=== PATIENT | male | born 1950 | race Hispanic/Latino ===

== ENCOUNTER 2018-09-27 16:05 | Inpatient (IN) | payer OTHER ==
[~2018-09-27] VITALS: Ht 175.3 cm; Wt 79.3 kg
[2018-09-27 16:29] LABS: BASOPHILS % (AUTO) 2.3 % (0.0-5.0); EOSINOPHILS % (AUTO) 0.3 % (0.0-8.0); HEMATOCRIT 30.9 % (42-54); LYMPHOCYTES % (AUTO) 23.2 % (21.0-51.0); MEAN CORPUSCULAR HGB CONC 32.4 g/dL (32.0-36.0); MEAN CORPUSCULAR VOLUME 83.4 fL (79-99); MONOCYTES % (AUTO) 2.1 % (3.0-13.0); NEUTROPHILS % (AUTO) 72.1 % (40.0-77.0); NUCLEATED RED BLOOD CELLS 1.1 % (0.0-0.19); PLATELET COUNT (AUTO) 271 K/uL (130-400); RED BLOOD CELL COUNT(AUTO) 3.71 MIL/uL (4.50-6.20); RED CELL DISTRIBUTION WIDTH 16.7 % (11.0-15.5); WHITE BLOOD COUNT (AUTO) 10.7 K/uL (4.8-10.8)
[2018-09-27] MEDS ORDERED: ZOSYN 3.375GM+NS 50ML 50 ML IV ONE (16:33)
[2018-09-27] MEDS ORDERED: SODIUM CHLORIDE 0.9% 1000ML 2,000 ML IV ONE (16:33)
[2018-09-27 16:41] LABS: INR 1.13 (0.85-1.15); PARTIAL THROMBOPLASTIN TIME 33.1 SEC (26.3-35.5); PROTHROMBIN TIME 11.8 SEC (9.6-11.6)
[2018-09-27 16:53] LABS: ALANINE AMINOTRANSFERASE 215 U/L (12-78); AMMONIA 35 umol/L (11-32); ASPARTATE AMINOTRANSFERASE 333 U/L (10-37); BILIRUBIN,TOTAL 9.7 mg/dL (0.2-1.0); CARBON DIOXIDE 19 mmol/L (21-32); CREATINE KINASE, TOTAL 73 U/L (21-232); CREATININE 1.6 mg/dL (0.5-1.5); GLOMERULAR FILTR. RATE CALC 46 mL/min (>60); GLUCOSE,RANDOM 193 mg/dL (70-105); MYOGLOBIN 123 ng/mL (10-92); POTASSIUM 4.3 mmol/L (3.5-5.1); SODIUM SERUM 121 mmol/L (136-145); TOTAL PROTEIN, SERUM 5.8 g/dL (6.0-8.3); TROPONIN I < 0.04 ng/mL (0.00-0.06); UREA NITROGEN, BLOOD 34 mg/dL (7-18)
[2018-09-27 16:56] LABS: CHLORIDE 87 mmol/L (101-111)
[2018-09-27 17:12] LABS: ALBUMIN 1.4 g/dL (3.5-5.0)
[2018-09-27 19:48] LABS: APPEARANCE,URINE Cloudy (CLEAR); BILIRUBIN,URINE Large (NEGATIVE); COLOR,URINE Dark Yellow (YELLOW); GLUCOSE, URINE (UA) TRACE mg/dL (NEGATIVE); KETONES,URINE Negative (NEGATIVE); LEUKOCYTE ESTERASE ,URINE Trace (NEGATIVE); NITRATE,URINE Positive (NEGATIVE); OCCULT BLOOD,URINE Negative (NEGATIVE); PROTEIN,URINE POS 1+ mg/dL (NEGATIVE)
[2018-09-27 19:59] LABS: RBC,URINE 0-1 /HPF (0-1)
[2018-09-27 20:00] LABS: BACTERIA,URINE Few /HPF (None Seen); SQUAMOUS EPITHELIAL CELL,UR Rare /HPF (0-2)
[2018-09-27 20:01] LABS: COARSE GRANULAR CASTS,URINE 0-2 /LPF (None Seen)
[2018-09-27 20:02] LABS: MUCUS,URINE Rare LPF (None Seen); OTHER CASTS, URINE WBC CASTS 1+ /LPF (None Seen)
[2018-09-27] MEDS: SODIUM CHLORIDE 0.9% 1000ML 1,000 ML IV SCH (20:57)
[2018-09-27] MEDS ORDERED: GLUCAGON 1MG KIT 1 MG ML IM PRN (21:00)
[2018-09-27] MEDS: INSULIN HUMULIN R 100 UNIT/ML 3ML SQ SCH (21:00)
[2018-09-27] MEDS ORDERED: ACETAMINOPHEN 325 MG TAB PO PRN ×2 (21:00)
[2018-09-27] MEDS ORDERED: DEXTROSE 50%-WATER 50 ML DISP.SYRIN IV PRN (21:00)
[2018-09-27] MEDS ORDERED: FAMOTIDINE 20MG TAB 20 MG TAB PO SCH (21:00)
[2018-09-27] MEDS ORDERED: NITROGLYCERIN 0.4 MG SL TAB SL PRN (21:00)
[2018-09-27] MEDS ORDERED: ONDANSETRON HCL 4 MG/2 ML VIAL IV PRN (21:00)
[2018-09-27 21:19] LABS: AMPHET/METH SCREEN,URINE NEGATIVE (NEGATIVE); BARBITURATE SCREEN, URINE NEGATIVE (NEGATIVE); BENZODIAZEPINES SCREEN,URINE NEGATIVE (NEGATIVE); CANNABINOID SCREEN,URINE NEGATIVE (NEGATIVE); COCAINE SCREEN,URINE NEGATIVE (NEGATIVE); OPIATE SCREEN,URINE NEGATIVE (NEGATIVE); PHENCYCLIDINE SCREEN,URINE NEGATIVE (NEGATIVE); SODIUM,URINE RANDOM < 15 mmol/l (40-220)
[2018-09-27] MEDS ORDERED: SODIUM CHLORIDE 0.9% 1000ML 1,000 ML IV ONE (22:30)
[2018-09-27] MEDS ORDERED: FAMOTIDINE/PF 20 MG/2 ML VIAL IV ONE (22:30)
[2018-09-28] VITALS (7 sets, daily range): BP systolic 121–136; BP diastolic 59–64
[2018-09-28] MEDS: ZOSYN 3.375GM+NS 50ML 50 ML IV SCH ×3 (00:29→15:02)
[2018-09-28] MEDS ORDERED: METO-391 PO (01:50)
[2018-09-28] MEDS ORDERED: ATOR40TA69 PO (01:50)
[2018-09-28] MEDS ORDERED: INSLAN SQ ×2 (01:50)
[2018-09-28] MEDS ORDERED: PROP150T28 PO (01:50)
[2018-09-28] MEDS ORDERED: ISOS20TA7 PO (01:50)
[2018-09-28] MEDS ORDERED: HYDR-4154 PO (01:50)
[2018-09-28 04:34] LABS: HEMATOCRIT 23.5 % (42-54); MEAN CORPUSCULAR HEMOGLOBIN 28.8 pg (27.0-33.0); MEAN CORPUSCULAR HGB CONC 34.6 g/dL (32.0-36.0); MEAN CORPUSCULAR VOLUME 83.1 fL (79-99); NUCLEATED RED BLOOD CELLS 0.6 % (0.0-0.19); PLATELET COUNT (AUTO) 164 K/uL (130-400); RED BLOOD CELL COUNT(AUTO) 2.83 MIL/uL (4.50-6.20)
[2018-09-28 04:49] LABS: ALBUMIN 1.2 g/dL (3.5-5.0); BILIRUBIN,TOTAL 8.3 mg/dL (0.2-1.0); CREATININE 1.2 mg/dL (0.5-1.5); POTASSIUM 3.9 mmol/L (3.5-5.1); TOTAL PROTEIN, SERUM 4.8 g/dL (6.0-8.3)
[2018-09-28 05:04] LABS: BAND NEUTROPHILS % (MANUAL) 10 % (0-2); LYMPHOCYTES % (MANUAL) 8 % (22-44); MONOCYTES % (MANUAL) 8 % (2-9); SEGMENTED NEUTROPHILS % 74 % (40-70)
[2018-09-28 05:05] LABS: MAN.DIFF COMMENT-IMPRESSION MANUAL DIFFERENTIAL; PLATELET MORPHOLOGY COMMENT ADEQUATE
[2018-09-28] MEDS: INSULIN HUMULIN R 100 UNIT/ML 3ML SQ SCH ×4 (06:07→21:00)
[2018-09-28] MEDS: SODIUM CHLORIDE 0.9% 1000ML 1,000 ML IV SCH ×2 (06:57→15:02)
[2018-09-28] MEDS: FAMOTIDINE 20MG TAB 20 MG TAB PO SCH (07:47)
--- NOTE | 2018-09-28 08:00 | NUR ---
ASSESSMENT PT IS AAOX4 DENIES CP DENIES SOB DENIES NV NO COMPLAINTS. ASSISTED UP TO RESTROOM, BACK TO BED. PATIENT HAD SOFT BROWN BM. CALL LIGHT WITHIN REACH.
--- NOTE | 2018-09-28 08:15 | NUR ---
DR PINK CONSULT PLACED WITH HIS OFFICE, SPOKE WITH SAVANNAH
--- NOTE | 2018-09-28 08:45 | NUR ---
DR Ana DELATORRE ROUNDED SAW PATIENT
[2018-09-28] MEDS ORDERED: ENOXAPARIN SODIUM 30 MG/0.3 ML SQ SCH (09:00)
--- NOTE | 2018-09-28 09:30 | NUR ---
DR LYNCH CONSULT CALLED FLOOR, ORDERS RECEIVED
[2018-09-28 09:58] LABS: INR 1.18 (0.85-1.15); PROTHROMBIN TIME 12.3 SEC (9.6-11.6)
--- NOTE | 2018-09-28 12:30 | NUR ---
STATUS RESTING IN BED NO COMPLAINTS. FAMILY IS AT BEDSIDE
[2018-09-28] MEDS ORDERED: SODIUM CHLORIDE 1,000 MG TAB PO SCH ×2 (14:30→21:00)
[2018-09-28] MEDS ORDERED: LACTULOSE 20 GM/30 ML UDCUP PO SCH (14:45)
--- NOTE | 2018-09-28 15:15 | NUR ---
MD ROUNDS DR WATSON AND DR LYNCH ROUNDED. SAW PATIENT. PLAN FOR LIVER BIOPSY TOMORROW BY IR AND EGD 09-[address] LYNCH
--- NOTE | 2018-09-28 15:26 | NUR ---
DC PLAN VISITED WITH PATIENT. PATIENT LIVES WITH SPOUSE. INDEPENDENT ABLE TO PERFORM ADL'S. PATIENT HAS NO SERVICES. WALKER AT HOME FROM THE [place]. FEELS SAFE TO RETURN HOME. Addendum: 09/28/18 at 1530 by FALGUNI THORNTON RN CM Amended: Links added.
[2018-09-28] MEDS: HYDROCODONE/ACETAMINOPHEN 5/325 MG TAB PO PRN (18:33)
[2018-09-28] MEDS: LACTULOSE 20 GM/30 ML UDCUP PO SCH (20:49)
[2018-09-29] MEDS: SODIUM CHLORIDE 0.9% 1000ML 1,000 ML IV SCH (00:42)
[2018-09-29] MEDS: ZOSYN 3.375GM+NS 50ML 50 ML IV SCH ×3 (00:43→22:09)
[2018-09-29] MEDS: HYDROCODONE/ACETAMINOPHEN 5/325 MG TAB PO PRN ×2 (00:51→19:52)
[2018-09-29 03:55] VITALS: BP 142/67
[2018-09-29 04:48] LABS: MEAN CORPUSCULAR HEMOGLOBIN 27.7 pg (27.0-33.0); MEAN CORPUSCULAR HGB CONC 33.2 g/dL (32.0-36.0); MEAN CORPUSCULAR VOLUME 83.5 fL (79-99); NUCLEATED RED BLOOD CELLS 0.8 % (0.0-0.19); PLATELET COUNT (AUTO) 180 K/uL (130-400); RED BLOOD CELL COUNT(AUTO) 2.76 MIL/uL (4.50-6.20); RED CELL DISTRIBUTION WIDTH 16.7 % (11.0-15.5); WHITE BLOOD COUNT (AUTO) 6.7 K/uL (4.8-10.8)
[2018-09-29 05:02] LABS: INR 1.15 (0.85-1.15); PARTIAL THROMBOPLASTIN TIME 35.2 SEC (26.3-35.5)
[2018-09-29 05:06] LABS: % IRON SATURATION 57.6 % (30-44)
[2018-09-29 05:10] LABS: ALBUMIN 1.1 g/dL (3.5-5.0); CREATININE 0.6 mg/dL (0.5-1.5); POTASSIUM 3.4 mmol/L (3.5-5.1)
[2018-09-29] MEDS: INSULIN HUMULIN R 100 UNIT/ML 3ML SQ SCH ×4 (06:26→21:00)
[2018-09-29 07:43] VITALS: BP 133/68
[2018-09-29] MEDS: FAMOTIDINE 20MG TAB 20 MG TAB PO SCH (09:00)
[2018-09-29] MEDS: LACTULOSE 20 GM/30 ML UDCUP PO SCH ×2 (09:00→19:52)
--- NOTE | 2018-09-29 10:00 | NUR ---
PROCEDURE PATIENT SCHEDULE FOR LIVER BIOPSY TODAY. DR Jayden NERI NOTIFIED AND RESCHEDULED PROCEDURE FOR TOMORROW IN THE AM. PROCEDURE OUTCOME REPORTED TO Schuyler HAN RN.
--- NOTE | 2018-09-29 11:30 | NUR ---
PROCEDURE OK TO PROCEED WITH U/S GD DLIVER BIOPSY FOR TODAY. DR Jayden NERI WITH NOTIFIE RADIOLOGY DEPT WHEN HE IS AVAILABLE FOR THE PROCEDURE. PROCEDURE OUTCOME REPORTED TO Schuyler HAN RN.
[2018-09-29 11:52] VITALS: BP 160/86
[2018-09-29] MEDS ORDERED: MIDAZOLAM HCL 1 MG/ML 2ML VIAL ONE (15:37)
[2018-09-29] MEDS ORDERED: FENTANYL CITRATE PF 50 MCG/1 ML 2ML VIAL ONE (15:37)
--- NOTE | 2018-09-29 16:45 | NUR ---
U/S GD LIVER BX PROCEDURE PERFORMED BY DR Tiki BERNABE. PUNCTURE SITE RT UPPER ABDOMEN AND PATIENT TOLERATED PROCEDURE WELL. SPECIMEN X 4 COLLECTED AND SENT TO LAB. END OF PROCEDURE AT 1610. FLOSEAL INJECTED TO BIOPSY SITE. BIOPSY NEEDLE REMOVED AND DRESSING APPLIED. NO BLEEDING NOTED. REPORT GIVEN TO Schuyler HAN RN AND PATIENT TRANSPORTED TO [facility] VIA BED AT 1645. AAO X3 WITH NO C/O PAIN.
[2018-09-29 17:08] VITALS: BP 140/74
--- NOTE | 2018-09-29 18:21 | NUR ---
Nutrition Intervention: Nutrition screen based on Alb 1.1. Pt. admitted with Dx of Hyponatremia, Metabolic Acidosis. Pt. reports has lost 33#(16% of UBW) within 1 1/2 months due to decreased appetite. Pt. with Hx of Liver Mass. Pt. on 75gm CCD Heart Healthy Soft [place] diet with poor p.o. intake, as per pt. Spoke with pt. regarding nutritional supplementation with Glucerna but pt. declined due to states he doesn't like it. Pt. agreed to try ProMod protein supplement. Labs reviewed(Alb 1.1, BG 160, HgbA1c 11.0%). LBM: 09/28/18, per pt. SR-18, jaundice. BMI: 26.1, normal for age. Pt. and spouse educated on Diabetic diet and provided with education material. Pt. and spouse verbalized understanding. Recommendations: 1) Rec. 30ml ProMod TID with meals. 2) Diabetic diet education given to pt. and spouse. 3) Continue to monitor pt's nutritional status. 4) Consult RD as nutrition concerns arise. Addendum: 09/29/18 at [address] Amended: Links added.
--- NOTE | 2018-09-29 19:00 | NUR ---
Received bedside report pt. is for EGD tomorrow and pending result.Pt. aware about NPO status post midnight.
[2018-09-29 19:37] VITALS: BP 147/69
[2018-09-29 23:36] VITALS: BP 137/68
[2018-09-30] VITALS (7 sets, daily range): BP systolic 137–147; BP diastolic 69–85
--- NOTE | 2018-09-30 | NUR ---
Pt. Kept NPO at this time and demonstrated understanding,Rn Ante Partum notified and said pt. is scheduled @2pm.
[2018-09-30] MEDS: ZOSYN 3.375GM+NS 50ML 50 ML IV SCH ×3 (05:03→21:16)
[2018-09-30 05:08] LABS: HEMATOCRIT 25.5 % (42-54); MEAN CORPUSCULAR HEMOGLOBIN 28.4 pg (27.0-33.0); MEAN CORPUSCULAR HGB CONC 33.5 g/dL (32.0-36.0); MEAN CORPUSCULAR VOLUME 84.7 fL (79-99); NUCLEATED RED BLOOD CELLS 1.4 % (0.0-0.19); PLATELET COUNT (AUTO) 158 K/uL (130-400); RED BLOOD CELL COUNT(AUTO) 3.01 MIL/uL (4.50-6.20); RED CELL DISTRIBUTION WIDTH 17.1 % (11.0-15.5); WHITE BLOOD COUNT (AUTO) 6.5 K/uL (4.8-10.8)
[2018-09-30 05:24] LABS: CREATININE 0.9 mg/dL (0.5-1.5)
[2018-09-30 05:45] LABS: % IRON SATURATION 57.6 % (30-44)
[2018-09-30] MEDS: INSULIN HUMULIN R 100 UNIT/ML 3ML SQ SCH ×3 (05:50→21:28)
--- NOTE | 2018-09-30 08:45 | NUR ---
AM ASSESSMENT PT LAYING IN BED, HOB ELEVATED 30 DEGREES, RESTING. SPOUSE @ BEDSIDE. A/O X 3. JAUNDICE. NO SOB. NO DISTRESS NOTED. O2 NC @ 2L. DENIES CHEST PAIN OR DISCOMFORT. DENIES PALPITATIONS. TELE: SR 80s. DENIES N/V AND/OR DIARRHEA. NPO STATUS REINFORCED, PT TO HAVE EGD BY DR LYNCH TODAY. BR W/JESÚS. INSTRUCTED TO CALL FOR ASSISTANCE. CALL ALEJANDRO W/IN REACH.
--- NOTE | 2018-09-30 09:50 | NUR ---
STATUS PT & C/O SLURRED SPEECH, NUMBNESS TO TO MOUTH/TONGUE. STATES SYMPTOMS STARTED JUST NOW. NEURO ASSESSMENT DONE. DR WATSON NOTIFIED OF PT'S STATUS WHILE ROUNDING IN POD C.
--- NOTE | 2018-09-30 09:52 | NUR ---
MD VISIT DR WATSON IN TO SEE PT, SPOUSE @ BEDSIDE. ORDERS RECEIVE FOR NEURO CONS, DR CADENA, & CT SCAN.
--- NOTE | 2018-09-30 09:58 | NUR ---
NEUROLOGY CONSULT INFORMED BY DR XIONG Addendum: 09/30/18 at 1028 by BAUDILIO VILLALOBOS RN RN INCOMPLETE SAVE. INFORMED BY DR WATSON, DR CADENA NOTIFIED OF NEUROLOGY CONSULT NOTIFIED HIMSELF WHILE ROUNDING IN POD C.
--- NOTE | 2018-09-30 10:17 | NUR ---
GI DR LYNCH NOTIFIED OF PT'S STATUS, POSS STROKE. EGD CXD. PT & SPOUSE NOTIFIED.
[2018-09-30] MEDS ORDERED: IOHEXOL-350 75 ML VIAL IV ONE (10:33)
--- NOTE | 2018-09-30 11:39 | NUR ---
MD VISIT DR CADENA IN TO SEE PT FOR 2nd TIME TODAY. PT & SPOUSE IN RM. CT SCAN RESULTS, NEGATIVE FOR STROKE. INFORMED BY DR CADENA SYMPTOMS MAY BE R/T HEPATIC METASTATIC DISEASE. QUESTIONS ENCOURAGED & CLARIFIED.
[2018-09-30] MEDS: HYDROCODONE/ACETAMINOPHEN 5/325 MG TAB PO PRN (14:36)
[2018-09-30] MEDS: FAMOTIDINE 20MG TAB 20 MG TAB PO SCH (14:36)
[2018-09-30] MEDS: LACTULOSE 20 GM/30 ML UDCUP PO SCH ×2 (14:42→21:15)
[2018-10-01] MEDS: HYDROCODONE/ACETAMINOPHEN 5/325 MG TAB PO PRN ×2 (02:25→21:08)
[2018-10-01 04:09] VITALS: BP 132/71
--- NOTE | 2018-10-01 05:13 | NUR ---
Pt.gets confused and removed his IV.catheter tip intact noted and dressing applied.New IV inserted.
[2018-10-01] MEDS: ZOSYN 3.375GM+NS 50ML 50 ML IV SCH ×3 (05:18→21:07)
[2018-10-01 05:42] LABS: HEMATOCRIT 25.9 % (42-54); MEAN CORPUSCULAR HEMOGLOBIN 27.4 pg (27.0-33.0); MEAN CORPUSCULAR HGB CONC 32.5 g/dL (32.0-36.0); MEAN CORPUSCULAR VOLUME 84.3 fL (79-99); NUCLEATED RED BLOOD CELLS 1.1 % (0.0-0.19); PLATELET COUNT (AUTO) 162 K/uL (130-400); RED BLOOD CELL COUNT(AUTO) 3.07 MIL/uL (4.50-6.20); RED CELL DISTRIBUTION WIDTH 17.4 % (11.0-15.5); WHITE BLOOD COUNT (AUTO) 7.3 K/uL (4.8-10.8)
[2018-10-01] MEDS: INSULIN HUMULIN R 100 UNIT/ML 3ML SQ SCH ×4 (06:06→21:00)
[2018-10-01 06:07] LABS: ALBUMIN 1.2 g/dL (3.5-5.0); CREATININE 0.8 mg/dL (0.5-1.5); POTASSIUM 3.1 mmol/L (3.5-5.1)
[2018-10-01 07:00] VITALS: BP 137/76
[2018-10-01] MEDS: AMILORIDE HCL 5 MG TABLET PO SCH (10:13)
[2018-10-01] MEDS: LACTULOSE 20 GM/30 ML UDCUP PO SCH ×2 (10:13→21:07)
[2018-10-01] MEDS: FAMOTIDINE 20MG TAB 20 MG TAB PO SCH (10:13)
[2018-10-01 11:00] VITALS: BP 125/62
[2018-10-01 16:00] VITALS: BP 149/80
[2018-10-01 19:15] VITALS: BP 133/72
[2018-10-01 23:19] VITALS: BP 149/81
--- NOTE | 2018-10-02 00:48 | NUR ---
LITIGATION DOCKET MANAGER ARJUN was called and notified regarding pt K level 3.1 and not being covered.Received order to activate hypokalemia protocol
[2018-10-02] MEDS ORDERED: POTASSIUM CHLORIDE 10% ELIXIR 20 MEQ/15 ML UDCUP ONE (00:52)
[2018-10-02] MEDS ORDERED: POTASSIUM CHLORIDE 20 MEQ ERTAB PO PRN ×2 (01:00)
[2018-10-02] MEDS ORDERED: MAGNESIUM 2GM PREMIX 50ML 50 ML IV PRN (01:00)
[2018-10-02] MEDS ORDERED: POTASSIUM CHLORIDE 20MEQ/100ML 100 ML IV PRN ×2 (01:00)
[2018-10-02] MEDS ORDERED: POTASSIUM CHLORIDE 10% ELIXIR 20 MEQ/15 ML UDCUP PO PRN (01:00)
[2018-10-02] MEDS ORDERED: LIDOCAINE HCL-MPF 1% 2ML VIAL IVP PRN ×2 (01:00)
[2018-10-02] MEDS: POTASSIUM CHLORIDE 10% ELIXIR 20 MEQ/15 ML UDCUP PO PRN ×2 (02:49→03:56)
[2018-10-02] MEDS: HYDROCODONE/ACETAMINOPHEN 5/325 MG TAB PO PRN ×2 (02:54→11:14)
[2018-10-02 03:25] VITALS: BP 139/92
[2018-10-02 04:05] LABS: HEMATOCRIT 25.8 % (42-54); MEAN CORPUSCULAR HEMOGLOBIN 28.5 pg (27.0-33.0); MEAN CORPUSCULAR HGB CONC 33.2 g/dL (32.0-36.0); NUCLEATED RED BLOOD CELLS 3.7 % (0.0-0.19); PLATELET COUNT (AUTO) 136 K/uL (130-400); RED CELL DISTRIBUTION WIDTH 17.8 % (11.0-15.5); WHITE BLOOD COUNT (AUTO) 6.5 K/uL (4.8-10.8)
[2018-10-02 04:10] LABS: CREATININE 1.2 mg/dL (0.5-1.5); MAGNESIUM 2.2 mg/dL (1.80-2.40); POTASSIUM 4.6 mmol/L (3.5-5.1)
[2018-10-02] MEDS: ZOSYN 3.375GM+NS 50ML 50 ML IV SCH ×3 (04:29→20:20)
[2018-10-02] MEDS: INSULIN HUMULIN R 100 UNIT/ML 3ML SQ SCH ×4 (06:43→21:00)
--- NOTE | 2018-10-02 07:18 | NUR ---
Bedside report given to incoming NOD using SBAR, pending to follow up Dr. Johnson regarding status of the previous planned procedure.
[2018-10-02 07:30] VITALS: BP 128/63
[2018-10-02] MEDS: AMILORIDE HCL 5 MG TABLET PO SCH (09:03)
[2018-10-02] MEDS: LACTULOSE 20 GM/30 ML UDCUP PO SCH ×3 (09:03→20:19)
[2018-10-02] MEDS: FAMOTIDINE 20MG TAB 20 MG TAB PO SCH (09:03)
[2018-10-02 10:30] VITALS: BP 138/85
[2018-10-02 15:00] VITALS: BP 142/67
[2018-10-02 16:18] LABS: BASOPHILS % (AUTO) 0.8 % (0.0-5.0); EOSINOPHILS % (AUTO) 0.9 % (0.0-8.0); LYMPHOCYTES % (AUTO) 15.4 % (21.0-51.0); MEAN CORPUSCULAR HEMOGLOBIN 28.1 pg (27.0-33.0); MEAN CORPUSCULAR VOLUME 85.2 fL (79-99); MONOCYTES % (AUTO) 6.3 % (3.0-13.0); NEUTROPHILS % (AUTO) 76.6 % (40.0-77.0); NUCLEATED RED BLOOD CELLS 2.7 % (0.0-0.19); PLATELET COUNT (AUTO) 110 K/uL (130-400); WHITE BLOOD COUNT (AUTO) 5.2 K/uL (4.8-10.8)
[2018-10-02 17:05] LABS: CREATININE 1.1 mg/dL (0.5-1.5)
[2018-10-02 17:18] LABS: ALBUMIN 1.2 g/dL (3.5-5.0); BILIRUBIN,TOTAL 9.9 mg/dL (0.2-1.0); TOTAL PROTEIN, SERUM 4.7 g/dL (6.0-8.3)
--- NOTE | 2018-10-02 18:26 | NUR ---
SPOUSE BROUGHT FENTANYL PATCHES FROM HOME AROUND 10 AM IN THE MORNING. SHE WAS ASKING FOR US TO GET AN ORDER FOR THEM BUT I TOLD HER THAT WE NEEDED THE DR'S APPROVAL BEFORE WE WOULD GIVE PATIENT ANY MEDICATION OF ANY KIND. AROUND 11:30 AM PHYSICAL THERAPY WENT IN TO DO THERAPY WITH THE PATIENT. I HAD PLACED HIS CPAP FROM HOME ON PER SPOUSES REQUEST SHE SAID THAT IT WOULD HELP HIM SLEEP. WHEN THERAPY WENT IN TO SEE PATIENT AND TO START WITH THEIR THERAPY PATIENT REFUSED. UPON EVALUATION OF THE PATIENT THEY DISCOVERED THAT SPOUSE HAD PLACED THE FENTANYL 25MCG PATCH ON THE PATIENT. ONCE I FOUND OUT I IMMEDIATELY WENT AND TOLD THE SPOUSE THAT SHE SHOULDN'T BE GIVING THE PATIENT ANYTHING WITHOUT OUR APPROVAL. I INFORMED HER OF THE DANGERS OF GIVING THE PATIENT SUCH A POWERFUL DRUG. SPOUSE IMMEDIATELY REMOVED IT AND APOLOGIZED AND SAID THAT SHE WOULD NOT DO THAT ANYMORE. I INSTRUCTED HER THAT SHE NEEDED TO SPEAK WITH THE DR FIRST BEFORE ANY ACTION CAN BE TAKEN. Addendum: 10/02/18 at 1859 by TIM MARTINEZ RN RN Amended: Links added.
[2018-10-02 19:30] VITALS: BP 144/74
[2018-10-02 23:35] VITALS: BP 161/63
[2018-10-03] MEDS: LACTULOSE 20 GM/30 ML UDCUP PO SCH ×4 (02:13→19:50)
--- NOTE | 2018-10-03 02:15 | NUR ---
PT HAS BEEN ABLE TO TAKE MEDICATIONS DIRECTED. MOMENTS WHERE HE IS FORGETFUL BUT EASILY REDIRECTED. COMPLIANT TO CARE. DOES MOVE AROUND AND TAKES OFF TELE MONITOR. LACTULOSE GIVEN. PENDING TO HAVE BM. AMMONIA LEVELS ELEVATED. FAMILY AWARE.
[2018-10-03 04:01] LABS: BASOPHILS % (AUTO) 0.2 % (0.0-5.0); EOSINOPHILS % (AUTO) 0.6 % (0.0-8.0); HEMATOCRIT 24.3 % (42-54); LYMPHOCYTES % (AUTO) 12.3 % (21.0-51.0); MEAN CORPUSCULAR HEMOGLOBIN 27.9 pg (27.0-33.0); MEAN CORPUSCULAR HGB CONC 32.7 g/dL (32.0-36.0); MEAN CORPUSCULAR VOLUME 85.3 fL (79-99); MONOCYTES % (AUTO) 6.2 % (3.0-13.0); NEUTROPHILS % (AUTO) 80.7 % (40.0-77.0); NUCLEATED RED BLOOD CELLS 1.7 % (0.0-0.19); PLATELET COUNT (AUTO) 119 K/uL (130-400); RED BLOOD CELL COUNT(AUTO) 2.85 MIL/uL (4.50-6.20); RED CELL DISTRIBUTION WIDTH 18.5 % (11.0-15.5); WHITE BLOOD COUNT (AUTO) 6.3 K/uL (4.8-10.8)
[2018-10-03 04:20] LABS: CREATININE 1.1 mg/dL (0.5-1.5)
[2018-10-03 04:31] VITALS: BP 131/71
[2018-10-03] MEDS: ZOSYN 3.375GM+NS 50ML 50 ML IV SCH ×3 (05:04→19:50)
[2018-10-03] MEDS: INSULIN HUMULIN R 100 UNIT/ML 3ML SQ SCH ×4 (06:38→21:16)
[2018-10-03 07:44] VITALS: BP 158/74
[2018-10-03] MEDS: AMILORIDE HCL 5 MG TABLET PO SCH (08:41)
[2018-10-03] MEDS: FAMOTIDINE 20MG TAB 20 MG TAB PO SCH (08:41)
--- NOTE | 2018-10-03 10:40 | NUR ---
MARILY DEL ROSARIO IS IN TO SEE PATIENT. DISCUSSED PLAN OF CARE IN DETAIL WITH PATIENT, , AND OTHER FAMILY MEMBERS PRESENT IN ROOM. EVERYONE AGREED ON D/C PLANNING TO REHAB.
[2018-10-03 11:04] VITALS: BP 147/70
--- NOTE | 2018-10-03 13:06 | NUR ---
cm note met with patinet and with spouse, and states that [facility], also informed her. that [facility], [facility], and [facility]. but will need to send referral to ensure that he has the benefit. pt states they live in [place], but prefer to go to [facility], choice letter obtained,
[2018-10-03 16:00] VITALS: BP 138/72
--- NOTE | 2018-10-03 18:51 | NUR ---
cm note referral faxed to [facility], spoke to Modesta sifuentes and states will come evaluate pt in am.
[2018-10-03 19:30] VITALS: BP 135/70
[2018-10-03 23:00] VITALS: BP 130/67
[2018-10-04] MEDS: LACTULOSE 20 GM/30 ML UDCUP PO SCH ×4 (01:43→21:23)
[2018-10-04 03:47] LABS: BASOPHILS % (AUTO) 0.4 % (0.0-5.0); EOSINOPHILS % (AUTO) 0.2 % (0.0-8.0); LYMPHOCYTES % (AUTO) 42.9 % (21.0-51.0); MEAN CORPUSCULAR HGB CONC 33.7 g/dL (32.0-36.0); MEAN CORPUSCULAR VOLUME 85.9 fL (79-99); MONOCYTES % (AUTO) 4.6 % (3.0-13.0); NEUTROPHILS % (AUTO) 51.9 % (40.0-77.0); NUCLEATED RED BLOOD CELLS 1.1 % (0.0-0.19); PLATELET COUNT (AUTO) 85 K/uL (130-400); RED BLOOD CELL COUNT(AUTO) 2.68 MIL/uL (4.50-6.20); RED CELL DISTRIBUTION WIDTH 17.7 % (11.0-15.5); WHITE BLOOD COUNT (AUTO) 6.4 K/uL (4.8-10.8)
[2018-10-04 04:04] LABS: ALBUMIN 1.1 g/dL (3.5-5.0); POTASSIUM 4.3 mmol/L (3.5-5.1); TOTAL PROTEIN, SERUM 4.3 g/dL (6.0-8.3)
[2018-10-04 04:06] LABS: BILIRUBIN,DIRECT 9.3 mg/dL (0.0-0.3)
[2018-10-04 04:35] VITALS: BP 118/75
[2018-10-04] MEDS: ZOSYN 3.375GM+NS 50ML 50 ML IV SCH ×3 (05:01→21:23)
[2018-10-04] MEDS: INSULIN HUMULIN R 100 UNIT/ML 3ML SQ SCH ×4 (06:26→21:00)
[2018-10-04 07:00] VITALS: BP 135/70
[2018-10-04] MEDS: AMILORIDE HCL 5 MG TABLET PO SCH (08:27)
[2018-10-04] MEDS: FAMOTIDINE 20MG TAB 20 MG TAB PO SCH (08:28)
[2018-10-04] MEDS ORDERED: DRONABINOL 2.5 MG CAP PO ONE (09:00)
[2018-10-04 11:00] VITALS: BP 135/68
--- NOTE | 2018-10-04 12:48 | NUR ---
RD Follow up Pt remains with poor PO intake as per Pt's spouse. Spouse with request for appetite stimulant;RD agree. RD also recommend 60mL ProMod BID for increased nutritional intake. Pt dislike Glucerna nutritional supplement. Pt LBM 10/04/18. Pt monitored labs: BUN 36, Glu 219, Ca 8.3, T. Bili 11.0, AST 291, ALT 198, Alk 1610, NH3 33, Alb 1.1. RD to continue to monitor. Please notify RD as additional nutrition concerns arise. Thank you. Addendum: 10/04/18 at [address] Amended: Links added.
--- NOTE | 2018-10-04 14:50 | NUR ---
TRANSFER REPORT CALLED TO [facility]. TELE WILMER EXCHANGED @ THIS TIME.
--- NOTE | 2018-10-04 15:25 | NUR ---
TRANSFER PT TAKEN TO RM 330 VIA BED BY Tiki MANZO PCP & MYSELF, Schuyler VILLALOBOS RN, ACCOMPANIED BY SPOUSE. NO DISTRESS NOTED.
[2018-10-04 16:00] VITALS: BP 141/57
[2018-10-04 19:15] VITALS: BP 127/70
[2018-10-04] MEDS: HYDROCODONE/ACETAMINOPHEN 5/325 MG TAB PO PRN (21:23)
[2018-10-05 00:21] VITALS: BP 143/72
[2018-10-05] MEDS: LACTULOSE 20 GM/30 ML UDCUP PO SCH ×3 (02:15→15:49)
[2018-10-05 04:33] VITALS: BP 117/70
[2018-10-05] MEDS: ZOSYN 3.375GM+NS 50ML 50 ML IV SCH ×2 (05:50→15:49)
[2018-10-05 07:41] VITALS: BP 147/68
[2018-10-05] MEDS: INSULIN HUMULIN R 100 UNIT/ML 3ML SQ SCH ×3 (07:52→16:14)
[2018-10-05] MEDS: AMILORIDE HCL 5 MG TABLET PO SCH (08:42)
[2018-10-05] MEDS: FAMOTIDINE 20MG TAB 20 MG TAB PO SCH (08:42)
[2018-10-05] MEDS: HYDROCODONE/ACETAMINOPHEN 5/325 MG TAB PO PRN (08:42)
[2018-10-05 12:00] VITALS: BP 137/73
[2018-10-05 16:00] VITALS: BP 135/76
--- NOTE | 2018-10-05 17:20 | NUR ---
OXYGEN Patient alternates throughout the day between room air, oxygen at 1-2L/min and CPap depending on how he feels as sometimes he complains of dyspnea. He is on Cpap at this time.
[2018-10-05] MEDS ORDERED: AMIL5TAB8 PO (18:07)
[2018-10-05] MEDS ORDERED: HYDR-2132 PO (18:07)
--- NOTE | 2018-10-05 20:00 | NUR ---
ASSESSMENT Patient is resting in bed with family member at bedside. AA&OX2. No shortness or breath or distress. No pain or chest pain at this time. Patient will be discharge by day nurse. Patient will be leaving to [facility] via EMS. Informed patient and spouse that EMS may take a while to come and transfer patient. Both state they understand. Encourage patient and patient's spouse to call for assistance if needed. Call light within reach with bed at its lowest and locked position.
[2018-10-05 20:51] VITALS: BP 147/74
--- NOTE | 2018-10-05 21:48 | NUR ---
DISCHARGE Report called to Karen Vidal to nurse Deacon and discharge done. Ambulance was called as soon as chart was copied by paralegal secretary Margaret. Pending for ambulance to come to pick patient. and patient are updated and now transfer to [facility] is imminent pending the arrival of the ambulance.
--- NOTE | 2018-10-05 23:27 | NUR ---
STATUS OF EMS TRANSFER Called [facility] to call for the status for transfer of patient. Spoke to Leighton; states he can't say what time EMS will arrive but patient is on the list. Will continue to monitor patient.
[2018-10-06] VITALS: BP 143/74
--- NOTE | 2018-10-06 00:50 | NUR ---
DISCHARGE EMS arrived to floor to transfer patient to [facility]. Patient has been discharge by day nurse at change of shift. Packet given to EMS. Patient will leave with a 22 gauge to the left hand, saline lock. Tele monitor removed. Patient resting in bed with at bedside. Patient's belongings taken by . Patient transferred via stretcher by EMS.
== END 2018-10-06 00:52 | DRG 682 ==
LOC: EDH 16:05 → EDHIP 20:22 → 2DH 09-28 00:05 → 3AH 10-04 14:52
PROVIDERS: ADMIT Internal Medicine; ATTEND Internal Medicine
PROC: 0FB23ZX Excision of Left Lobe Liver, Percutaneous Approach, Diagnostic (ICD-10-PCS; principal; 2018-09-29)
DX: N17.9 Acute kidney failure, unspecified (principal); G93.41 Metabolic encephalopathy; E43 Unspecified severe protein-calorie malnutrition; E87.1 Hypo-osmolality and hyponatremia; N39.0 Urinary tract infection, site not specified; I13.0 Hypertensive heart and chronic kidney disease with heart failure and stage 1 through stage 4 chronic kidney disease, or unspecified chronic kidney disease; E87.2 Acidosis; R91.8 Other nonspecific abnormal finding of lung field; E11.65 Type 2 diabetes mellitus with hyperglycemia; K72.90 Hepatic failure, unspecified without coma; D64.9 Anemia, unspecified; E86.9 Volume depletion, unspecified; R47.81 Slurred speech; E11.22 Type 2 diabetes mellitus with diabetic chronic kidney disease; E78.00 Pure hypercholesterolemia, unspecified; E78.5 Hyperlipidemia, unspecified; I25.10 Atherosclerotic heart disease of native coronary artery without angina pectoris; I25.2 Old myocardial infarction; I50.9 Heart failure, unspecified; K59.03 Drug induced constipation; R16.0 Hepatomegaly, not elsewhere classified; N18.9 Chronic kidney disease, unspecified; Z82.49 Family history of ischemic heart disease and other diseases of the circulatory system; Z83.3 Family history of diabetes mellitus; Z87.891 Personal history of nicotine dependence; Z95.1 Presence of aortocoronary bypass graft; Z88.8 Allergy status to other drugs, medicaments and biological substances; Z98.49 Cataract extraction status, unspecified eye; Z68.25 Body mass index [BMI] 25.0-25.9, adult
CPT/HCPCS: 36415; 47000; 70450; 70496; 70498; 71045; 76705; 76942; 80048; 80053; 80076; 80305; 81001; 82040; 82105; 82140; 82378; 82550; 82948; 83036; 83540; 83550; 83605; 83735; 83874; 83880; 83930; 83935; 84145; 84300; 84484; 85025; 85027; 85610; 85730; 86140; 86316; 87040; 87077; 87088; 87186; 88307; 93005; 93880; 97039; 99152; 99153; 99291; G0378; J1650; J1815; J2250; J2543; J3010; J3490; J7030; Q0167; Q9967